=== PATIENT | male | born 1990 | race Caucasian/White ===

== ENCOUNTER → 2016-11-02 | Outpatient (REF) | LOC: WSOH 09:50 | DX: Z02.89 Encounter for other administrative examinations (principal) ==

== ENCOUNTER 2019-03-16 06:35 | Emergency (ER) | payer BC ==
[~2019-03-16] VITALS: Ht 170.2 cm; Wt 90.9 kg
[2019-03-16 06:44] VITALS: TEMP 98.4
[2019-03-16] MEDS ORDERED: MOBIC 7.5MG7.5 MG PO (07:58)
[2019-03-16] MEDS ORDERED: FLEXERIL 1010 MG/TAB PO (07:58)
[2019-03-16] MEDS ORDERED: NORCO 325 MG-51 TAB PO (07:58)
[2019-03-16 09:43] VITALS: BP 124/93; PULSE 81
== END 2019-03-16 09:43 | disposition home or self-care (01) ==
LOC: COL.ER 06:35
DX: M54.5 Low back pain (principal)

== ENCOUNTER 2019-09-30 12:43 | Emergency (ER) | payer BC ==
[~2019-09-30] VITALS: Ht 170.2 cm; Wt 87.3 kg
[~2019-09-30 12:43] MED LIST: FLEXERIL 1010 MG/TAB PO; MOBIC 7.5MG7.5 MG PO; NORCO 325 MG-51 TAB PO
[2019-09-30 12:47] VITALS: TEMP 97.4
[2019-09-30 13:33] LABS: ALANINE AMINOTRANSFERASE 26 U/L (4-49); ALBUMIN 4.8 gm/dL (3.5-5.0); ALKALINE PHOSPHATASE 52 U/L (50-136); ANION GAP 10 mmol/L (7-16); AST,SGOT 30 U/L (15-37); BILIRUBIN,TOTAL 0.8 mg/dL (0.0-1.0); BLOOD UREA NITROGEN 16 mg/dL (9-20); CARBON DIOXIDE 25 mmol/L (22-30); CHLORIDE 102 mmol/L (98-107); CREATININE, serum 1.02 (0.66-1.25); GLUCOSE 104 mg/dL (74-106); LIPASE 194 U/L (23-300); POTASSIUM 3.9 mmol/L (3.4-5.0); SODIUM 137 mmol/L (137-145); TOTAL PROTEIN 7.9 gm/dL (6.4-8.2)
[2019-09-30 13:40] LABS: BASO # 0.1 (0.0-0.2); BASO % 0.7 % (0.0-2.0); EOS # 0.3 (0.0-0.7); EOS % 2.7 % (0-4.0); GRAN # 6.5 (1.4-6.5); GRAN % 64.9 % (42.2-75.2); HEMATOCRIT 46.3 % (42.0-52.0); HEMOGLOBIN 16.1 g/dl (13.5-18.0); LYMPH # 2.6 (1.2-3.4); LYMPH % 26.1 % (20.0-51.0); MEAN CELL VOLUME 88 fl (80.0-100.0); MEAN CORPUSCULAR HEMOGLOBIN 31 pg (27.0-31.0); MEAN CORPUSCULAR HGB CONC 35 g/dl (33.0-37.0); MEAN PLATELET VOLUME 11.9 fl (7.4-10.4); MONO # 0.5 (0.1-0.6); MONO % 5.3 % (1.7-9.3); PLATELET COUNT 167 K/mm3 (130-400); RED BLOOD COUNT 5.28 M/mm3 (4.20-5.60); REDCELL DISTRIBUTION WIDTH-CV 13.4 % (11.5-14.5)
[2019-09-30 13:42] LABS: C-REACTIVE PROTEIN < 0.5 mg/dL (0.0-0.9)
[2019-09-30] MEDS ORDERED: PROTONIX 40MG T40 MG PO (14:22)
[2019-09-30] MEDS ORDERED: ZOFRAN ODT8 MG PO (14:22)
[2019-09-30 15:00] VITALS: BP 130/82; PULSE 64
== END 2019-09-30 15:00 | disposition home or self-care (01) ==
LOC: COL.ER 12:43
PROVIDERS: Emergency Medicine
DX: R11.2 Nausea with vomiting, unspecified (principal); R19.7 Diarrhea, unspecified
CPT/HCPCS: C9113; J1885; J2405; J7030

== ENCOUNTER 2021-02-14 04:52 | Emergency (ER) | payer BC ==
[~2021-02-14 04:52] MED LIST changes: +PROTONIX 40MG T40 MG PO; +ZOFRAN ODT8 MG PO
[2021-02-14 05:02] VITALS: TEMP 97
[2021-02-14 05:47] LABS: BASO # 0.1 K/mm3 (0.0-0.2); BASO % 0.8 % (0.0-2.0); EOS # 0.2 K/mm3 (0.0-0.7); EOS % 1.4 % (0-4.0); GRAN # 7.4 K/mm3 (1.4-6.5); GRAN % 62.7 % (42.2-75.2); HEMATOCRIT 49.5 % (42.0-52.0); HEMOGLOBIN 17.1 g/dl (13.5-18.0); LYMPH # 3.4 K/mm3 (1.2-3.4); LYMPH % 28.4 % (20.0-51.0); MEAN CELL VOLUME 91 fl (80.0-100.0); MEAN CORPUSCULAR HEMOGLOBIN 32 pg (27.0-31.0); MEAN CORPUSCULAR HGB CONC 35 g/dl (33.0-37.0); MEAN PLATELET VOLUME 10.8 fl (7.4-10.4); MONO # 0.8 K/mm3 (0.1-0.6); MONO % 6.5 % (1.7-9.3); PLATELET COUNT 241 K/mm3 (130-400); RED BLOOD COUNT 5.42 M/mm3 (4.20-5.60); REDCELL DISTRIBUTION WIDTH-CV 13.7 % (11.5-14.5)
[2021-02-14 06:11] LABS: ALBUMIN 4.5 gm/dL (3.5-5.0); BILIRUBIN,TOTAL 0.7 mg/dL (0.2-1.2); CALCIUM 9.4 mg/dL (8.4-10.2); CREATININE, serum 1.01 mg/dL (0.72-1.25); POTASSIUM 3.8 mmol/L (3.5-4.5); TOTAL PROTEIN 7.9 gm/dL (6.2-8.1)
[2021-02-14] MEDS ORDERED: ZOFRAN ODT4 MG PO (06:22)
[2021-02-14] MEDS ORDERED: TESSALON P100 MG/CAP PO (06:22)
[2021-02-14 06:40] VITALS: BP 135/97; PULSE 104
== END 2021-02-14 06:40 | disposition home or self-care (01) ==
LOC: COL.ER 04:52
PROVIDERS: Emergency Medicine
DX: R05.9 Cough, unspecified (principal); R11.2 Nausea with vomiting, unspecified; F17.210 Nicotine dependence, cigarettes, uncomplicated; Z20.822 Contact with and (suspected) exposure to COVID-19
CPT/HCPCS: J2405; J7030